=== PATIENT | female | born 1980 | race Hispanic/Latino ===

== ENCOUNTER 2020-07-20 14:53 | Emergency (ER) | payer OTHER ==
[2020-07-20] MEDS ORDERED: Ketorolac Tromethamine 30 MG/ML VIAL ONE (15:25)
[2020-07-20] MEDS ORDERED: Clindamycin/D5W 900 mg/50 ml Premix Bag ONE (15:25)
[2020-07-20] MEDS ORDERED: Dexamethasone 10 MG/ML VIAL ONE (15:26)
== END 2020-07-20 17:14 ==
LOC: ERS 14:53
DX: K04.7 Periapical abscess without sinus (principal)
CPT/HCPCS: 96365; 96375; J1100; J1885; J3490